=== PATIENT | male | born 1990 | race Caucasian/White ===

== ENCOUNTER 2018-03-13 21:05 | Emergency (ER) | payer SELFPAY ==
[~2018-03-13] VITALS: Ht 180.3 cm; Wt 64.7 kg
[~2018-03-13 21:05] MED LIST: MOTRIN600 MG PO; PEN-VEE K,VEET500 MG PO
[2018-03-14] MEDS ORDERED: NORCO 10/3251 TABLET PO (01:51)
[2018-03-14] MEDS ORDERED: MOTRIN800 MG PO (01:51)
[2018-03-14] MEDS ORDERED: ZOFRAN ODT8 MG PO (01:54)
[2018-03-14 02:12] VITALS: BP 119/77
== END 2018-03-14 02:14 | disposition home or self-care (01) ==
LOC: EME 21:05
DX: S06.0X0A Concussion without loss of consciousness, initial encounter (principal); S42.011A Anterior displaced fracture of sternal end of right clavicle, initial encounter for closed fracture; Y04.0XXA Assault by unarmed brawl or fight, initial encounter; Y92.410 Unspecified street and highway as the place of occurrence of the external cause; F17.200 Nicotine dependence, unspecified, uncomplicated
CPT/HCPCS: 73030; 99281; 99284; J3010